=== PATIENT | male | born 1965 | race Caucasian/White ===

== ENCOUNTER 2025-10-04 08:09 | Emergency (ER) | payer MEDICAID, OTHER ==
[~2025-10-04] VITALS: Ht 172.7 cm; Wt 70.7 kg
[~2025-10-04 08:09] MED LIST: LORA-269 PO
[2025-10-04 08:12] VITALS: BP 115/91; PULSE 79; TEMP 97.2; O2SAT 97
--- NOTE | 2025-10-04 08:48 | RADIOLOGY REPORT ---
X-ray left ankle REASON FOR EXAM: ANKLE PAIN Technique: AP lateral and oblique views FINDINGS: Fracture at the base of the 5th metatarsal. No fractures of the distal tibia, fibula, or bones of the hindfoot IMPRESSION: 1. Fracture base of the 5th metatarsal
[2025-10-04] MEDS: HYDROcodone/acetaminophen 5mg/325mg tablet PO ONE (08:50)
[2025-10-04 09:32] VITALS: RESP 22
[2025-10-04] MEDS ORDERED: LORA-269 PO (09:47)
--- NOTE | 2025-10-04 09:48 | Physician Documentation ---
History of Present Illness ~ Chief Complaint: Ankle pain Stated Complaint: L FOOT PAIN Time Seen by MD: 09:05 OK to notify your PCP?: Yes Primary Medical Doctor: [facility] Source: patient Mode of Arrival: POV, Wheelchair Exam Limitations: no limitations HPI 60-year-old male who is here due to left foot pain after he fell off a ladder yesterday. He states that he landed on his feet. He denies any pain in his ankle joint, knee or back. He did not hit his head he states there was no actual fall since he landed on his feet and that the pain is completely localized to his left foot where he has swelling and ecchymosis. Pre arrival treatment with Tylenol and Motrin have not been helping the pain. Patient is also requesting a refill of his lorazepam. He states the pharmacy has been contacting Dr. Muñoz however she has not yet refilled it. Patient was prescribed 30 lorazepam 1 mg here two weeks ago. He recently moved here from [place] and states he does not have a primary care provider. Tetanus witin 5 years: Yes Medication Reconciliation Allergies: Coded Allergies: prochlorperazine (Verified Allergy, Unknown, MUSCLE SPASMS OF BODY, 10/04/25) Scheduled PRN Lorazepam (Ativan), 1 TAB PO Q12H PRN PRN for anxiety Past Medical History Past Medical History: No Pertinent History, Anxiety Review of Systems All Other Systems at this time: Reviewed and Negative Physical Exam Vital Signs: Temperature: 97.2, Source: Temporal, Heart Rate: 79, Respiratory Rate: 22, BP: 115/91, Pulse Oximetry: 97, Weight: 70.700 Oxygen Flow Rate: 0 Physical Exam General Appearance: Alert, WD/WN. NAD. HEENT: NCAT, PERRL, EOMI. Neck: Supple, trachea midline. Cardiovascular: RRR. No m/r/g. Lungs: CTAB. Breathing unlabored Extremities: Left foot diffuse edema with ecchymosis most of the ecchymosis is over the 4th and 5th metatarsal, tenderness over the 4th and 5th metatarsal, active range motion of toes full. Cap refill at toes less than 2 seconds. P edal pulses 2+ bilaterally. No tenderness over the ankle joint, calf or knee joint. Skin: Warm/dry, normal color Neurological: Alert and oriented x4, ambulating favoring his right leg. Psychiatric: Affect congruent with mood. Procedures Procedures SEE OTHER SECTION Progress Progress Note 3VIEW XRAY OF ANKLE REASON FOR EXAM: ANKLE PAIN Technique: AP lateral and oblique views FINDINGS: Fracture at the base of the 5th metatarsal. No fractures of the distal tibia, fibula, or bones of the hindfoot IMPRESSION: 1. Fracture base of the 5th metatarsal PROCEDURE LEFT LOWER LEG: DELIVERER PHARMACY PLACED PATIENT IN LEFT WALKING BOOT AND FIT WITH CRUTCHES, VASCULARLY INTACT POST SPLINT, PATIENT REPORTED IMPROVED PAIN Results/Orders Results/Orders Orders - MICHAEL ALEMAN Ortho Orders (10/04/25 09:17) Medications Received in ER Medications (Trade) Dose Ordered Sig/Alison Route PRN Reason Start Time Stop Time Status Last Admin Dose Admin ([place] 5/325mg tablet) 1 tab ONCE ONCE PO 10/04/25 08:45 10/04/25 08:46 DC 10/04/25 08:50 1 TAB Vital Signs 10/04/25 10/04/25 10/04/25 10/04/25 08:12 08:32 08:50 09:32 Temp 97.2 Pulse 79 Resp 22 22 22 22 B/P (MAP) 115/91 Pulse Ox 97 O2 Flow Rate 0 Medical Decision Making Additional information obtaine: old records, N/A Findings PREVIOUS VISIT General Diff Dx:Considerations: Unlikely: Other Knee Diff Dx:Considerations: Unlikely: Other Ankle Diff Dx:Considerations: Unlikely: Other Foot Diff Dx:Considerations: Include: Abrasion, Arthritis, Cellulitis, Contusion, Dislocation, DJD, Fracture-metatarsal, Fracture-phalynx, Fracture- tarsal, Gout, Hematoma, Ingrown toenail, Laceration, Malunion, Neurovascular injury, Open fracture, Paronychia, Puncture, Rheumatoid, Sprain, Septic, Subungual hematoma, Ulcer Toe Diff Dx:Considerations: Unlikely: Other Departure Time of Disposition: 09:45 Disposition: 01 HOME / SELF CARE / HOMELESS Impression: Primary Impression: Closed fracture of 5th metacarpal Qualified Codes: S62.307A - Unspecified fracture of fifth metacarpal bone, left hand, initial encounter for closed fracture Additional Impression: Anxiety disorder Qualified Codes: F41.9 - Anxiety disorder, unspecified Condition: Stable Discharge Instructions: Metatarsal Fracture Additional Instructions: f/u with pcp for referral to orthopedist i can not refer you directly to orthopedist as your insurance requires referral from primary you need to have follow up xrays to assess healing you also need to see a pcp or mental health specialist for your refills of your ativan it is against our policy to continue to refill these types of medications in the er. REASON FOR EXAM: ANKLE PAIN Technique: AP lateral and oblique views FINDINGS: Fracture at the base of the 5th metatarsal. No fractures of the distal tibia, fibula, or bones of the hindfoot IMPRESSION: 1. Fracture base of the 5th metatarsal Referrals: NO PRIMARY CARE PROVIDER (PCP) Prescriptions Lorazepam (Ativan) 1 Mg Tablet 1 TAB PO Q12H PRN PRN for anxiety for 14 Days, #14 TAB 0 Refills dx: delmi F41 Prov: MICHAEL ALEMAN 10/04/25 Education Educated: Patient Educated regarding: diagnosis, treatment, need for follow up Signature Scribe Signature: x Attestation: MICHAEL Carrillo Oct 04, 2025 09:47
== END 2025-10-04 10:08 | disposition home or self-care (01) ==
LOC: ER 08:10
DX: S92.352A Displaced fracture of fifth metatarsal bone, left foot, initial encounter for closed fracture (principal); F41.9 Anxiety disorder, unspecified; W19.XXXA Unspecified fall, initial encounter; Y93.89 Activity, other specified; Y92.89 Other specified places as the place of occurrence of the external cause; Y99.8 Other external cause status
CPT/HCPCS: 73610; 99283; L4360

== ENCOUNTER 2025-10-28 09:59 | Emergency (ER) | payer MEDICAID ==
[~2025-10-28] VITALS: Ht 172.7 cm; Wt 72.8 kg
[2025-10-28 10:00] VITALS: TEMP 98.7
--- NOTE | 2025-10-28 10:13 | ELECTROCARDIOGRAPH REPORT ---
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 LIBRADO Esp[place] Measurements Intervals [place] Rate: 100 P: -80 [place]: 143 QRS: 80 QRSD: 84 T: 58 QT: 381 QTc: 492 Interpretive Statements Sinus or ectopic atrial tachycardia Borderline prolonged QT interval Electronically Signed On 10-28-2025 17:34:[address] LIBRADO [place] Please click the below link to view image of tracing.
--- NOTE | 2025-10-28 10:17 | Physician Documentation ---
History of Present Illness General Chief Complaint: Multiple Medical Complaints Stated Complaint: DIARRHEA AND ANKLE PAIN Time Seen by MD: 10:16 Primary Medical Doctor: [facility] History of Present Illness Initial Comments 60-year-old male complains of diarrhea over last three days, patient states he also has left ankle pain that has been chronic. The patient states he has had copious diarrhea for last three days some nausea as well as some epigastric abdominal pain. Patient states he has been out of his Ativan for three days and he has had increased anxiety and some slight shortness of breath. The patient denies any fevers chills the patient's symptoms are moderate and persistent. Medication Reconciliation Allergies: Coded Allergies: prochlorperazine (Verified Allergy, Unknown, MUSCLE SPASMS OF BODY, 5) Scheduled Cefpodoxime Proxetil (Vantin), 1 TAB PO Q12H Scheduled PRN Chlordiazepoxide Hcl (Librium), 25 MG PO UD PRN for for anxiety/agitation Lorazepam (Ativan), 1 TAB PO Q12H PRN PRN for anxiety ONDANSETRON ODT 4mg tablet (Ondansetron Odt), 1 TABLET PO Q6H PRN for tim[place] sea/vomiting Past Medical History Past Medical History: No Pertinent History, Anxiety Review of Systems All Other Systems at this time: Reviewed and Negative Physical Exam Physical Exam Vital Signs: Temperature: 98.7, Source: Oral, Heart Rate: 94, Respiratory Rate: 26, BP: 155/72, Pulse Oximetry: 99, Weight: 72.800 Oxygen Flow Rate: 0 Physical Exam VITALS: Reviewed and as above. GENERAL: Alert, anxious appearing HEENT: Normocephalic, atraumatic, PERRL, EOMI, dry mucosa, no erythema RESPIRATORY: Lungs clear, normal breath sounds, no respiratory distress. CHEST: No accessory muscle use, no retractions CV: Regular rate, rhythm, no edema, no murmur, No: JVD GI: Soft, non-tender, bowels sounds present, no rebound, guarding, or rigidity BACK: No CVA tenderness, or swelling MUSCULOSKELETAL: No deformities, no edema SKIN: Warm and dry, no rash NEURO: Oriented x4, No motor or sensory deficit PSYCH: Anxious mood and affect, no agitation Progress Results/Orders Results/Orders Orders - OHLFS,NELSON Ocasio MD Electrocardiogram (10/28/25 10:05) Ultrasound Of Abdomen (10/28/25 11:28) Completed Orders - NELSON HOOVER MD Cbc/Diff (10/28/25 10:05) BMP (10/28/25 10:05) Lipase (10/28/25 10:05) CMP (10/28/25 10:05) Electrocardiogram (10/28/25 10:05) Hs Troponin I W Calculations (10/28/25 10:05) Procalcitonin (10/28/25 10:17) Normal Saline 1000ml (0.9% Sodium Chlori (10/28/25 10:20) Normal Saline 1000ml (0.9% Sodium Chlori (10/28/25 10:20) Metoclopramide Inj (Reglan Inj) (10/28/25 10:20) Diphenhydramine Inj (Benadryl Inj.) (10/28/25 10:20) Lorazepam Tablet (Ativan Tablet) (10/28/25 10:25) Ua W/Microscopic, Cult If Ind (10/28/25 10:22) Cult Urine + [address] (10/28/25 11:15) Potassium Cl Sr Tablet (K-Dur Tablet) (10/28/25 11:17) Ultrasound Of Abdomen (10/28/25 11:28) Ceftriaxone 2gm/D5w 50ml Bag (Rocephin 2 (10/28/25 11:35) Acetaminophen 1,000mg/100ml Iv (Ofirmev (10/28/25 12:35) Vital Signs 10/28/25 10/28/25 10/28/25 10/28/25 10:00 10:20 10:20 10:34 Temp 98.7 Pulse 94 95 Resp 26 20 24 B/P (MAP) 155/72 139/95 (110) Pulse Ox 99 97 O2 Flow Rate 0 0 10/28/25 10/28/25 10/28/25 11:40 11:49 12:39 Pulse 65 75 Resp 16 16 16 B/P (MAP) 153/85 (107) 167/89 Pulse Ox 98 98 O2 Flow Rate 0 Laboratory Tests Test 10/28/25 10:22 10/28/25 10:23 Urine Specimen Description Voided Urine Color Yellow Urine Clarity Clear Urine pH 8.5 Urine Specific [place] 1.020 Urine Protein 100 H Urine Glucose (UA) Negative Urine Ketones Trace H Urine Occult Blood Trace-intact Urine Nitrite Negative Urine Bilirubin Negative Urine Urobilinogen 0.2 Urine Leukocyte Esterase Negative Urine RBC 3-10 Urine WBC 20-30 H Urine Squamous Epithelial Cells Few Urine Bacteria 1+ Urine Sperm Moderate Urine Culture Indicated Indicated Volume Urine Centrifuged 10 ml Urine Comment White Blood Count 8.5 Red Blood Count 4.22 L Hemoglobin 14.5 Hematocrit 42.3 Mean Corpuscular Volume 100.2 H Mean Corpuscular Hemoglobin 34.3 H Mean Corpuscular Hemoglobin Concent 34.3 Red Cell Distribution Width 12.4 Platelet Count 173 Mean Platelet Volume 9.4 Neutrophils (%) (Auto) 65.0 Lymphocytes (%) (Auto) 23.9 Monocytes (%) (Auto) 10.8 Eosinophils (%) (Auto) 0.2 Basophils (%) (Auto) 0.1 Neutrophils # (Auto) 5.5 Lymphocytes # (Auto) 2.0 Monocytes # (Auto) 0.9 Eosinophils # (Auto) 0.0 Basophils # (Auto) 0.0 CBC Comment Platelet Estimate Normal Large Platelets Few Giant Platelets Few Red Blood Cell Morphology Perf Basophilic Stippling Macrocytosis 1+ Sodium Level 133 L Potassium Level 3.3 L Chloride Level 98 L Carbon Dioxide Level 24.6 Anion Gap 10 Blood Urea Nitrogen 10 Creatinine 0.84 Estimated GFR/1.73 m2 > 90 BUN/Creatinine Ratio 11.9 Glucose Level 121 H Calcium Level 8.9 Total Bilirubin 1.4 H Aspartate Amino Transf (AST/SGOT) 122 H Alanine Aminotransferase (ALT/SGPT) 120 H Alkaline Phosphatase 66 Troponin I High Sensitivity 10 Total Protein 6.7 Albumin 3.7 Globulin 3.0 Albumin/Globulin Ratio 1.2 Lipase 80 H Procalcitonin 0.06 Chemistry Comments Microbiology Date/Time Source Procedure Growth Status 10/28/25 11:15 Urine Voided Urine Culture - Final NO GROWTH AFTER 2 DAYS Complete EKG/XRAY/CT/US/VASC/MRI Ultrasound : Impression Patient: JENNI RHODES Medical Record: [id number] : 1965, Age: 60 Sex: Male Location: ER Patient Status: REG ER Service Date/Time: 10/28/25 1128 Ordering Physician: NELSON HOOVER MD Exam: ULTRASOUND OF ABDOMEN INDICATION: abd pain elevated lft TECHNIQUE: Multiple real-time sonographic images were obtained of the right upper quadrant. COMPARISON: US ULTRASOUND OF ABDOMEN on DOS: 08/24/25 FINDINGS: The liver demonstrates increased echotexture without focal mass lesions. The liver measures 19 cm. There is no intrahepatic or extrahepatic ductal dilatation. The common duct measures 0.4 cm. The gallbladder is without evidence of stone or sludge. The gallbladder wall measures 0.2 cm and is within normal limits. The right kidney measures 10.8 cm. The right kidney is normal in contour, size, and shape. The echogenicity is normal. There is no hydronephrosis. The pancreas is not well visualized due to overlying bowel gas. IMPRESSION: No sonographic evidence of gallstones or acute cholecystitis. Hepatic steatosis and hepatomegaly. Electronically Signed by:OCTAVIO FERGUSON MD Date & Time: 10/28/25 1238 Dictated by: OCTAVIO FERGUSON MD Dictation date and time: 10/28/25 1238 Primary Care Provider: NO PRIMARY CARE PROVIDER cc: NELSON HOOVER MD ~ Medical Decision Making Additional information obtaine: old records Findings Patient presents with significant anxiety and clinically some dehydration the patient was treated in the emergency department with some improvement of his symptoms he also has alcohol withdrawal syndrome the patient will be discharged with a dose of Librium. The patient's previous hospitalizations has been reviewed. This labs were reviewed. The patient was noted to have a urinary tract infection he has been treated with ceftriaxone and will be discharged on antibiotics The patient has been advised to return for significant worsening of his symptoms. Differential Diagnosis n Departure Time of Disposition: 12:17 Disposition: 01 HOME / SELF CARE / HOMELESS Impression: Primary Impression: Anxiety disorder Qualified Codes: F41.1 - Generalized anxiety disorder Additional Impressions: Hypokalemia Alcohol withdrawal Qualified Codes: F10.930 - Alcohol use, unspecified with withdrawal, uncomplicated Urinary tract infection Qualified Codes: N39.0 - Urinary tract infection, site not specified Additional Impression Text Return for worsening of your symptoms, follow up with your healthcare providers soon as possible. Discharge Instructions: Abdominal Pain, Adult, [id number], Urinary Tract Infection, Adult Referrals: NO PRIMARY CARE PROVIDER (PCP) Prescriptions Chlordiazepoxide Hcl (Librium) 25 Mg Capsule 25 MG PO UD PRN for for anxiety/agitation, #32 CAP use 2 tablets by mouth 3 times a day for 2 days then 2 tablets twice a day for 2 days then 1 tablet 3 times a day for 2 days then one tablet twice a day for 2 days then 1 tablet a day for 2 days Prov: NELSON HOOVER MD 10/28/25 ONDANSETRON ODT 4mg tablet (ONDANSETRON ODT) 4 Mg Tab.rapdis 1 TABLET PO Q6H PRN for nausea/vomiting, #12 TABLET Prov: NELSON HOOVER MD 10/28/25 Cefpodoxime Proxetil (Vantin) 200 Mg Tablet 1 TAB PO Q12H for 7 Days, #14 TAB Prov: NELSON HOOVER MD 10/28/25 Signature Scribe Signature: no scribe Attestation: The note accurately reflects work and decisions made by me.Nelson Hoover MD 10/30/25 13:31 NELSON HOOVER MD Oct 28, 2025 10:17
[2025-10-28] MEDS: normal saline 1000ML IV soln IVB ONE ×2 (10:34)
[2025-10-28] MEDS: metoclopramide 5 mg/ml inj IV ONE (10:34)
[2025-10-28 10:42] LABS: MEAN PLATELET VOLUME 9.4 FL (7.4-10.4); RED CELL DISTRIBUTION WIDTH 12.4 % (11.5-14.5)
[2025-10-28 10:48] LABS: CREATININE 0.84 MG/DL (0.60-1.10); TOTAL CARBON DIOXIDE 24.6 MMOL/L (24-32); eCRCL 90 ML/MIN; eGFR > 90 ML/MIN
[2025-10-28 11:08] LABS: LEUKOCYTE ESTERASE ,URINE NEGATIVE (Neg); NITRITES, URINE NEGATIVE (Neg); OCCULT BLOOD,URINE TRACE-INTACT (Neg)
[2025-10-28 11:13] LABS: UA COLLECTION TYPE VOIDED
[2025-10-28 11:14] LABS: SQUAMOUS EPITHELIAL CELL,UR FEW /LPF (FEW)
[2025-10-28 11:15] LABS: SPERM MODERATE /HPF (NEGATIVE)
[2025-10-28 11:19] LABS: GIANT PLATELET FEW; LARGE PLATELETS FEW; PLATELET ESTIMATE NORMAL
[2025-10-28] MEDS: potassium Cl 20 mEq SR tablet PO STA (11:40)
[2025-10-28] MEDS: CefTRIAXone 2gm/D5W 50ml BAG 50 ML IV ONE (11:41)
[2025-10-28] MEDS ORDERED: ONDA-243 PO (12:18)
[2025-10-28] MEDS ORDERED: CEFP200T13 PO (12:18)
[2025-10-28] MEDS ORDERED: CHLO25CA10 PO (12:18)
[2025-10-28 12:39] VITALS: BP 167/89; PULSE 75; RESP 16; O2SAT 98
--- NOTE | 2025-10-28 12:41 | RADIOLOGY REPORT ---
INDICATION: abd pain elevated lft TECHNIQUE: Multiple real-time sonographic images were obtained of the right upper quadrant. COMPARISON: US ULTRASOUND OF ABDOMEN on DOS: 08/24/25 FINDINGS: The liver demonstrates increased echotexture without focal mass lesions. The liver measures 19 cm. There is no intrahepatic or extrahepatic ductal dilatation. The common duct measures 0.4 cm. The gallbladder is without evidence of stone or sludge. The gallbladder wall measures 0.2 cm and is within normal limits. The right kidney measures 10.8 cm. The right kidney is normal in contour, size, and shape. The echogenicity is normal. There is no hydronephrosis. The pancreas is not well visualized due to overlying bowel gas. IMPRESSION: No sonographic evidence of gallstones or acute cholecystitis. Hepatic steatosis and hepatomegaly.
[2025-10-28] MEDS: acetaminophen 1,000mg/100ml IV 100 ML IV ONE (12:49)
== END 2025-10-28 13:00 | disposition home or self-care (01) ==
LOC: ER 10:00
DX: F41.9 Anxiety disorder, unspecified (principal); F10.239 Alcohol dependence with withdrawal, unspecified; N39.0 Urinary tract infection, site not specified; E87.6 Hypokalemia; Y90.9 Presence of alcohol in blood, level not specified; Z88.8 Allergy status to other drugs, medicaments and biological substances
CPT/HCPCS: 36415; 76700; 80053; 81001; 83690; 84145; 84484; 85008; 85025; 87088; 93005; 96361; 96365; 96375; 99285; J0131; J0696; J1200; J2765; J7030

== ENCOUNTER 2025-11-14 00:14 | Emergency (ER) | payer MEDICAID ==
[~2025-11-14] VITALS: Ht 172.7 cm; Wt 73.3 kg
[~2025-11-14 00:14] MED LIST changes: +CHLO25CA10 PO; +ONDA-243 PO
--- NOTE | 2025-11-14 00:29 | Physician Documentation ---
History of Present Illness ~ Chief Complaint: Chest Pain Stated Complaint: HICCUPS Time Seen by MD: 00:21 Primary Medical Doctor: [facility] HPI Patient presents to the emergency room for evaluation of hiccups. Onset 3 hours ago. Hiccups every 3-4 seconds. No prior episodes. Denies heart history. Also complaining of heartburn not relieved with Mylanta Medication Reconciliation Allergies: Coded Allergies: prochlorperazine (Verified Allergy, Unknown, MUSCLE SPASMS OF BODY, 11/14/25) Scheduled PRN Chlordiazepoxide Hcl (Librium), 25 MG PO UD PRN for for anxiety/agitation Lorazepam (Ativan), 1 TAB PO Q12H PRN PRN for anxiety ONDANSETRON ODT 4mg tablet (Ondansetron Odt), 1 TABLET PO Q6H PRN for nausea/vomiting Past Medical History Past Medical History: No Pertinent History, Anxiety Review of Systems ROS All review of systems negative except as per HPI Physical Exam Vital Signs: Temperature: 98.0, Source: Oral, Heart Rate: 96, Respiratory Rate: 20, BP: 132/102, Pulse Oximetry: 96, Weight: 73.300 Oxygen Flow Rate: 0 Physical Exam General: Patient is awake, alert, oriented x4. Hiccups every 3 seconds Head: Normocephalic and atraumatic. Eyes: Conjunctival normal. EOMI. PERRL. ENT: Mucous membranes moist. Neck: Supple, trachea is midline. Chest: Clear to auscultation bilaterally without rales, rhonchi, or wheezes. There is no accessory muscle use or retractions. Cardiac: RRR without murmurs, gallops, or rubs. Abd: Soft, nondistended, nontender, with normoactive bowel sounds. No guarding, rebound, or rigidity. Progress Results/Orders Results/Orders Orders - LOYD IYER MD Chest,Single View (11/14/25 00:21) Saline Lock (11/14/25 00:21) Monitor (11/14/25 00:21) Oxygen (11/14/25 00:21) Hs Troponin I W Calculations (11/14/25 03:21) Completed Orders - LOYD IYER MD Cbc/Diff (11/14/25 00:21) MG (11/14/25 00:21) Electrocardiogram (11/14/25 00:21) PBNP (11/14/25 00:21) Chest,Single View (11/14/25 00:21) Aspirin 81mg Chew Tablet (Aspirin 81mg C (11/14/25 00:25) BMP (11/14/25 00:21) Hs Troponin I W Calculations (11/14/25 00:21) Hs Troponin I W Calculations (11/14/25 02:21) Baclofen Tablet (Lioresal Tablet) (11/14/25 00:25) Gabapentin Capsule (Neurontin Capsule) (11/14/25 00:25) Metoclopramide Inj (Reglan Inj) (11/14/25 00:25) Ketorolac Trometh 15mg/Ml Vial (Toradol (11/14/25 00:25) Normal Saline 1000ml (0.9% Sodium Chlori (11/14/25 00:25) Famotidine/Pf Iv Inj (Pepcid Iv Inj) (11/14/25 00:25) Lorazepam Inj (Ativan Inj) (11/14/25 00:30) Medications Received in ER Medications (Trade) Dose Ordered Sig/Alison Route PRN Reason Start Time Stop Time Status Last Admin Dose Admin (aspirin 81MG chew tablet) 324 mg ONCE ONCE PO 11/14/25 00:25 11/14/25 00:26 DC 11/14/25 00:46 324 MG (Lioresal tablet) 10 mg ONCE ONCE PO 11/14/25 00:25 11/14/25 00:26 DC 11/14/25 00:47 10 MG (Neurontin capsule) 400 mg ONCE ONCE PO 11/14/25 00:25 11/14/25 00:32 DC 11/14/25 00:47 400 MG (Reglan inj) 5 mg ONCE ONCE IV 11/14/25 00:25 11/14/25 00:26 DC 11/14/25 00:49 5 MG (Toradol injection) 15 mg ONCE ONCE IV 11/14/25 00:25 11/14/25 00:32 DC 11/14/25 00:49 15 MG Sodium Chloride 1,000 ml @ 1,000 mls/hr ONCE ONCE IV 11/14/25 00:25 11/14/25 01:24 DC 11/14/25 00:46 1,000 MLS/HR (Pepcid IV inj) 20 mg ONCE ONCE IV 11/14/25 00:25 11/14/25 00:26 DC 11/14/25 00:50 20 MG (Ativan inj) 0.5 mg ONCE ONCE IV 11/14/25 00:30 11/14/25 00:31 DC 11/14/25 00:51 0.5 MG Vital Signs 11/14/25 11/14/25 11/14/25 11/14/25 00:19 00:49 00:51 01:44 Temp 98.0 Pulse 96 Resp 20 18 18 B/P (MAP) 132/102 Pulse Ox 96 O2 Flow Rate 0 11/14/25 02:41 Temp 98.0 Pulse 91 Resp 14 B/P (MAP) 115/65 (82) Pulse Ox 91 O2 Flow Rate 0 Laboratory Tests Test 11/14/25 00:31 11/14/25 03:03 White Blood Count 9.3 Red Blood Count 4.15 L Hemoglobin 14.2 Hematocrit 41.6 L Mean Corpuscular Volume 100.2 H Mean Corpuscular Hemoglobin 34.2 H Mean Corpuscular Hemoglobin Concent 34.2 Red Cell Distribution Width 13.6 Platelet Count 310 Mean Platelet Volume 7.9 Neutrophils (%) (Auto) 51.8 Lymphocytes (%) (Auto) 39.5 Monocytes (%) (Auto) 7.8 Eosinophils (%) (Auto) 0.4 Basophils (%) (Auto) 0.5 Neutrophils # (Auto) 4.8 Lymphocytes # (Auto) 3.7 Monocytes # (Auto) 0.7 Eosinophils # (Auto) 0.0 Basophils # (Auto) 0.0 CBC Comment Sodium Level 141 Potassium Level 3.9 Chloride Level 102 Carbon Dioxide Level 27.2 Anion Gap 12 Blood Urea Nitrogen 11 Creatinine 0.89 Estimated GFR/1.73 m2 87 BUN/Creatinine Ratio 12.4 Glucose Level 81 Calcium Level 9.0 Magnesium Level 1.8 Troponin I High Sensitivity 41 44 Pro-B-Type Natriuretic Peptide < 30 Albumin 3.9 Chemistry Comments Troponin I High Sens Percent Delta 7 Troponin I Hi Sens Absolute Change 3 Medical Decision Making Additional information obtaine: N/A Findings Patient presents to the emergency room with chief complaint of heartburn and hiccups. Differentials include but are not limited to diaphragmatic irritation, vagal nerve stimulation, reflux, ACS therefore emergent labs ordered. Troponins negative x2. Hiccups have resolved. Diff Dx GI Bleed:Consideration: Include: AE fistula, Angiodysplasia, Bleeding diathesis, Blood loss anemia, Carcinoma, Diverticulosis, Diverticulitis, Esophageal varicies, Esophagitis, Gastritis, Gastroenteritis, Inflammatory BD, Ashley-Howard syndrome, Meckel's diverticulum, PUD, Other Diff Dx Pain:Considerations: Include: AAA, Angina/KS, Aortic dissection, Appendicitis, Bowel obstruction, Cholangitis, Cholecystitis, Cholelithasis, Constipation, Diverticular disease, Esophageal rupture, Esophagitis, Gastritis, Gastroenteritis, GI hemorrhage, Hepatitis, Hernia, Inflammatory BD, Ischemic bowel, Mass, Pancreatitis, Porphyria, PUD, Testicular torsion, Trauma, intraabdominal, Urinary obstruction, Urinary tract infection, Urolithiasis, Other Diff Dx N/V/D:Considerations: Include: Appendicitis, Bowel obstruction, Dehydration, DKA, Diarrhea - bacterial, Diarrhea - parasitic, Diarrhea - viral, Diverticulitis, Diverticulosis, Drug toxicity, Electrolyte imbalance, Food poisoning, Gastroenteritis, GE reflux, GI bleed, Hepatitis, Hernia, Hypovolemia, Hypotension, Inflammatory BD, Impaction, Malnutrition, Pancreatitis, PUD, Renal failure, Urinary obstruction, UTI, Urolithiasis, Other Diff Dx Rectal:Considerations: Include: Fissure, Fistula, Foreign body, Impaction, Perirectal abscess, Prostatitis, Rectal prolapse, Subcutaneous abscess, Thrombosed hemorrhoid, Ulcer, UTI, Other Departure Disposition: 01 HOME / SELF CARE / HOMELESS Impression: Primary Impression: Hiccups Condition: Stable Discharge Instructions: Hiccups Referrals: NO PRIMARY CARE PROVIDER (PCP) Signature Scribe Signature: No scribe Attestation: The note accurately reflects work and decisions made by me.Lyod Iyer MD 11/14/25 03:40 LOYD IYER MD Nov 14, 2025 00:28
--- NOTE | 2025-11-14 00:34 | ELECTROCARDIOGRAPH REPORT ---
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 Blair Vargas Measurements Intervals [place] Rate: 96 P: 87 MA: 142 QRS: 74 QRSD: 85 T: 71 QT: 348 QTc: 440 Interpretive Statements A-V dual-paced complexes w/ some inhibition No further analysis attempted due to paced rhythm Electronically Signed On 11-20-2025 0:23:[address] Blair Vargas Please click the below link to view image of tracing.
[2025-11-14 00:41] LABS: MEAN PLATELET VOLUME 7.9 FL (7.4-10.4); RED CELL DISTRIBUTION WIDTH 13.6 % (11.5-14.5)
[2025-11-14] MEDS: normal saline 1000ml 1,000 ML IV ONE (00:46)
[2025-11-14] MEDS: metoclopramide 5 mg/ml inj IV ONE (00:49)
[2025-11-14] MEDS: ketorolac trometh 15mg/ml vial 15 MG/ML ML IV ONE (00:49)
[2025-11-14] MEDS: famotidine/PF 10 mg/ml inj IV ONE (00:50)
--- NOTE | 2025-11-14 01:04 | RADIOLOGY REPORT ---
CHEST RADIOGRAPH INDICATION: CP TECHNIQUE: Single frontal view of the chest was obtained COMPARISON: DI CHEST,SINGLE VIEW on DOS: 08/24/25 FINDINGS: Lines and Tubes: None Lungs: Clear Pleura: No effusion. No pneumothorax. Cardiomediastinal contours: Unremarkable Bones: Unremarkable IMPRESSION: 1. No acute disease.
[2025-11-14 01:07] LABS: CREATININE 0.89 MG/DL (0.60-1.10); PRO BRAIN NATRIURETIC PEPTIDE < 30 PG/ML (0-125); TOTAL CARBON DIOXIDE 27.2 MMOL/L (24-32); eCRCL 85 ML/MIN; eGFR 87 ML/MIN
[2025-11-14 03:50] VITALS: BP 113/69; PULSE 81; RESP 14; TEMP 98; O2SAT 90
[2025-11-14] MEDS ORDERED: FAMO-129 PO (03:52)
== END 2025-11-14 03:52 | disposition home or self-care (01) ==
LOC: ER 00:15
DX: R06.6 Hiccough (principal); R12 Heartburn; F41.9 Anxiety disorder, unspecified; Z95.0 Presence of cardiac pacemaker; Z88.8 Allergy status to other drugs, medicaments and biological substances; Z79.899 Other long term (current) drug therapy
CPT/HCPCS: 36415; 71045; 80048; 83735; 83880; 84484; 85025; 93005; 96361; 96374; 96375; 99285; J1885; J2060; J2765; J3490; J7030